=== PATIENT | male | born 1945 | race Caucasian/White ===

== ENCOUNTER 2018-06-17 07:19 | Day surgery (SDC) | payer OTHER, SELFPAY ==
--- NOTE | 2018-06-17 | PATH_ITS ---
[facility] Accession Number: [id number] . 01 Material submitted: . PART A: GASTRIC BIOPSIES PART B: ESOPHAGEAL BIOPSY . 02 Diagnosis: A. Gastric Biopsies: Mucosal hyperemia without associated significant inflammation involving fundic mucosa. Negative for evidence of Helicobacter on H/E stain. Negative for intestinal metaplasia. Negative for dysplasia and malignancy. . B. 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 No squamous mucosa identified. Negative for dysplasia and malignancy. BFI/06/18/2018 . 02 Electronically signed: . Paulie Hussein MD, Pathologist NPI- [id number] . 01 Gross description: . Received two formalin-filled containers, both labeled with the patient's name: . A. In a container labeled gastric, the specimen consists of a 0.3 cm portion of tissue, entirely submitted in cassette A. B. In a container labeled esophageal, the specimen consists of a 0.2 cm portion of tissue, entirely submitted in cassette B. ([id number]) /FRR . 02 Pathologist provided ICD-10: K22.70 . 02 CPT . 869900, 361166 Performed at: 01 [facility] [address], [place], [place] [id number] MD Sanya Devries MD Phone: [phone] Performed at: 02 [facility] [address] [place], [place] [id number] MD Leon Perera MD Phone: [phone]
[2018-06-17] MEDS: SODIUM CHLORIDE 0.9% 1,000 ML 42 ML IV (07:48)
[2018-06-17 07:49] VITALS: BP 127/82; PULSE 64; RESP 15; TEMP 36.3; O2SAT 97; BMI 30.2
--- NOTE | 2018-06-17 09:11 | PM.HP.1 ---
History of Present Illness Date Patient Seen: 06/17/18 Time Patient Seen: 09:12 Chief complaint: [id number] Narrative: History of Najera's esophagus Patient History Medical History Hypercholesterolemia (Acute) Hypertension (Acute) Family & Social History Social History: household members spouse Meds Home Medications Medication Instructions Recorded Confirmed Type aspirin 81 mg PO QDAY #0 11/25/17 History ferrous gluconate 236 mg PO QDAY #0 11/25/17 History lisinopril 10 mg PO QDAY #0 11/25/17 History omeprazole 40 mg PO QDAY #0 11/25/17 History pravastatin 40 mg PO QDAY #0 11/25/17 History Allergies Allergy/AdvReac Type Severity Reaction Status Date / Time phenytoin [From DILANTIN] AdvReac Intermediate Verified 06/17/18 08:03 Exam Vital Signs (past 8 hours): - 06/17/18 07:49 Temperature 97.4 F L Pulse Rate 64 Respiratory Rate 15 Blood Pressure 127/82 H Pulse Oximetry 97 Oxygen Delivery Method Room Air Narrative Exam Narrative: Oropharynx free of lesions Chest clear to auscultation and percussion Cardiac exam reveals no S3 or murmur Assessment & Plan Plan: Assessment/Plan Narrative: History of Najera's esophagus need for follow-up upper endoscopy. Risks, benefits, alternatives have been explained.
[2018-06-17] MEDS: LIDOCAINE 4% SOLN 50 ML 20 ML TOP (09:15)
[2018-06-17] MEDS: TETRACAINE/BENZOCAINE/BUTAMBEN (CETACAINE) BOTTLE 1 SPRAY TOP (09:15)
[2018-06-17] MEDS: MIDAZOLAM 5 MG/5 ML VIAL IV (09:19)
[2018-06-17] MEDS: fentaNYL 250 MCG/5 ML INJ IV (09:19)
[2018-06-17 09:35] VITALS: BP 110/72; PULSE 57; RESP 11; TEMP 35.8; O2SAT 94
[2018-06-17 09:40] VITALS: BP 112/70; PULSE 62; RESP 14; TEMP 35.9; O2SAT 94
--- NOTE | 2018-06-17 09:41 | PM.OP.ENDO ---
Operative Date/Time/Diagnoses Date of procedure: 06/17/18 Time of procedure: 09:41 Pre-op diagnosis: See indication Post-op diagnosis: same (See findings) Procedure & Clinicians Study performed: EGD Same procedure as scheduled: Yes Indications: History of Najera's esophagus Surgeon: Lissette Reynoso Procedure Notes Procedure in detail: After informed consent was obtained the patient was placed in left lateral decubitus position. The video upper scope placed into the oropharynx and the patient has helped swallowed the esophagus per the esophagus stomach and duodenum were carefully examined. On withdrawal retroflexed view the GE junction was performed. The scope was removed patient tolerated procedure well Blood loss none Complications non Sedation Fentanyl 200 mcg, Versed 5 mg IV titration Total sedation time 15 min Findings 1. Lower esophageal sphincter with top of gastric folds present at 36 cm and fairly competent. Just below this there was the smallest 4-5 mm tongue of tissue. This was biopsied to rule out Najera's however no other previous study on our group as documented Najera's. I doubt that this is anatomically in a position that would qualify for Najera's esophagus 2. Sliding hiatal hernia varying between 2 and 4 cm in size. At the rim of the hiatal hernia are several areas of streaky erythema 1 of which has an erosion present consistent with Hebert lesions. 3. Gastric body on the greater curvature has a erosion present which has been documented before and clearly is not healed. Biopsies taken in the area to rule out Helicobacter 4. Normal distal stomach 5. Normal duodenal bulb and sweep Patient has been placed chronically on omeprazole which I do not think is really doing much of anything for him. He does not have any baseline symptoms and I think it is just to heal up these Hebert lesions or his gastric erosion. I do not have his CBC her iron studies at this time. Pending how severe his anemia remains 1 can sometimes consider doing surgery for these lesions or we could increase his omeprazole. If however his hematocrit and iron studies are not far from normal might consider not doing anything but he would be at significant risk should he require any anticoagulants for future cardiovascular disease.
[2018-06-17 09:45] VITALS: BP 112/65; PULSE 60; RESP 14; TEMP 36; O2SAT 96
[2018-06-17 09:55] VITALS: BP 114/68; PULSE 55; RESP 16; TEMP 36.1; O2SAT 100
[2018-06-17 10:06] VITALS: BP 137/84; PULSE 71; RESP 16; TEMP 36.2; O2SAT 96
--- NOTE | 2018-06-17 10:34 | SUR.PHASEII ---
pt observed to have no difficultly swallowing beverage and no c/o pain/discomfort at that time.
== END 2018-06-17 10:20 | disposition home or self-care (01) ==
PROVIDERS: PCP Internal Medicine; Visit Provider Internal Medicine Gastroenterology
PROC: 0DJ08ZZ Inspection of Upper Intestinal Tract, Via Natural or Artificial Opening Endoscopic (ICD-10-PCS; CPT 43235; principal; 2018-06-17 09:00)
DX: K22.70 Barrett's esophagus without dysplasia (principal); K44.9 Diaphragmatic hernia without obstruction or gangrene; I10 Essential (primary) hypertension; E78.00 Pure hypercholesterolemia, unspecified
CPT/HCPCS: 43239; J2250; J3010